=== PATIENT | male | born 1985 | race Caucasian/White ===

== ENCOUNTER 2017-07-10 10:46 | Emergency (ER) | payer OTHER ==
--- NOTE | ~2017-07-10 | ER ---
PATIENT'S NAME: SUSIE FOWLER [facility] AGE: 31 Y [address] ROOM: [place] [id number] LOCATION: ED ADMIT DATE: 07/10/2017 ER/Outpatient Report DISCHARGE DATE: 07/10/2017 FAMILY PHYSICIAN: PHYSICIAN, NO ATTENDING PHYSICIAN: Oj Carlson CHIEF COMPLAINT: Dizziness, vomiting, and headache. HISTORY OF PRESENT ILLNESS: Mr. Fowler states that for the last several nights, he has had perfuse sweating, every morning woke up, drenched in sweat, but no weight changes. Today, he woke up the same and felt a little dizzy, which got better. Then while he is at work, he became very dizzy, all of a sudden followed by severe vomiting, which triggered him to have a very severe headache. He feels a little bit better now from his dizziness and headache, but it is still awful. The type of headache that he has is his typical headache, which he describes as a migraine though he has never been formally diagnosed with same. He states that this just came out of the blue and this type of presentation has not happened before. The intensity is worse than he has ever had. He has not tried anything other than lying down for this, which did not help. The exact time of onset is unclear, but it was within the hour prior to arrival. PAST MEDICAL HISTORY: Documented on the record and reviewed by me. SOCIAL HISTORY: Documented on the record and reviewed by me. MEDICATIONS: Documented on the record and reviewed by me. ALLERGIES: DOCUMENTED ON THE RECORD AND REVIEWED BY ME. REVIEW OF SYSTEMS: All systems were reviewed and negative except as noted in the HPI. PHYSICAL EXAMINATION: VITAL SIGNS: Blood pressure is 119/69, pulse is 67, respiratory rate is 14, temp 97.9, SpO2 is 98% on room air. Pain is rated at 8/10. GENERAL: Age-appropriate male, recumbent on the exam table, in obvious pain, but no acute distress. PATIENT'S NAME: SUSIE FOWLER [facility] AGE: 31 Y [address] ROOM: [place] [address] LOCATION: ED ADMIT DATE: 07/10/2017 ER/Outpatient Report DISCHARGE DATE: 07/10/2017 FAMILY PHYSICIAN: PHYSICIAN, NO ATTENDING PHYSICIAN: Oj Carlson NEUROLOGIC: The patient is awake and alert. GCS is 14. Opens eyes to command easily. No focal deficits. No asymmetry. No ambulation difficulty. HEENT: Normocephalic, atraumatic. Eyes are PERRL. Oropharynx is clear. NECK: Supple. Trachea is midline. CHEST/HEART: Regular rate and rhythm with no murmurs. LUNGS: Clear to auscultation bilateral. No rhonchi, wheezes, or rales. ABDOMEN: Soft, nontender, and nondistended. No rebound or guarding. BACK: Normal to inspection and palpation. EXTREMITIES: Warm and well perfused with no deformities or edema. SKIN: Clean, dry, intact with no obvious rashes. LABORATORY DATA AND X-RAYS: Head CT was obtained with no evidence of acute abnormality. Labs; EKG is normal, rate of 70, with normal intervals and axis. No signs of acute ischemia or dysrhythmia. No comparison available. Urinalysis with no infection. CMS with no abnormalities. Free T4 and TSH were 1.1 and 2.130 respectively. CBC with no appreciable abnormalities. INR is less than 1. IMPRESSION: Nausea, vomiting, and headache. EMERGENCY DEPARTMENT COURSE: The patient was seen and evaluated. He was treated with Benadryl and Compazine with marked improvement in his symptoms. Based on the acute onset and unusual history, I did obtain a head CT, which was negative. He states based on his history of hypertension, he takes blood pressure medication. He denies any family history of aneurysms, no history of intravenous drug use, and no connective tissue disorder. I do not think that this patient needs to have a lumbar puncture. The head CT was definitely within 6 hours and he is a very low risk individual. I discussed return precautions with the patient and he has elected to go home and try to sleep off the remainder of his headache and will return if worse. All questions were answered and the patient was discharged in good condition. MD ARTEMIO BRYAN/ysabel /[id number] d: 07/10/17 2217 t: 07/15/17 0642, OUTPATIENT REPORT
[2017-07-10 11:22] LABS: BASOPHIL # 0.1 K/uL (0.0-0.2); BASOPHIL % 1.2 %; EOSINOPHIL # 0.2 K/uL (0.0-0.5); EOSINOPHIL % 2.8 %; HEMATOCRIT 43.8 % (37.0-53.0); HEMOGLOBIN 14.9 g/dL (12.0-17.0); IMMATURE GRANULOCYTE % 0.4 %; LYMPHOCYTE % 35.1 %; MCH 31.3 pg (27.0-34.0); MONOCYTE # 0.4 K/uL (0.0-1.0); MONOCYTE % 6.9 %; MPV 10.6 fl (9.4-12.4); NEUTROPHIL # (ANC) 3.1 K/uL (1.4-9.0); NEUTROPHIL % 53.6 %; NRBC % 0 /100WBC (0-0.00); PLATELET COUNT 262 K/uL (150-450); RBC 4.76 M/uL (4.00-6.00); RDW-CV 11.2 % (11.9-14.6); WBC 5.7 K/uL (4.0-11.0)
[2017-07-10 11:34] LABS: INR - (THERAPEUTIC) 0.97 (0.92-1.07); PROTIME 10.2 SECONDS (9.8-11.4); PTT 27 SECONDS (25-32)
[2017-07-10 11:44] LABS: ALBUMIN 3.8 gm/dL (3.5-5.0); ANION GAP 10.2 (10.0-19.0); CALCIUM 9.4 mg/dL (8.5-10.5); CREATININE 1.4 mg/dL (0.6-1.3); POTASSIUM 4.2 mMol/L (3.7-5.1); TOTAL BILIRUBIN 0.6 mg/dL (0.0-1.5); TOTAL PROTEIN 6.9 g/dL (6.0-8.4)
[2017-07-10 12:07] LABS: BILIRUBIN URINE NEGATIVE (NEGATIVE); BLOOD URINE 10 /UL (NEGATIVE); COLOR URINE STRAW (YELLOW); GLUCOSE URINE NEGATIVE (NEGATIVE); KETONE URINE NEGATIVE (NEGATIVE); LEUKOCYTES URINE NEGATIVE /UL (NEGATIVE); NITRITE URINE NEGATIVE (NEGATIVE); PROTEIN URINE NEGATIVE (NEGATIVE); SPEC GRAVITY URINE 1.005 (1.003-1.035); TURBIDITY URINE CLEAR (CLEAR); UROBILINOGEN URINE NORMAL (NORMAL)
[2017-07-10 12:21] LABS: EPITHELIAL URINE 0-2 #/HPF (NEGATIVE); WBC URINE 0-2 #/HPF (NEGATIVE)
[2017-07-10 12:22] LABS: AMORPHOUS URINE 1+ (NEGATIVE); BACTERIA URINE NEGATIVE (NEGATIVE)
== END 2017-07-10 12:11 | disposition disaster alternative care site (69) ==
LOC: GMED 10:46
PROVIDERS: Emergency Medicine
DX: R51 Headache (principal); R11.2 Nausea with vomiting, unspecified; F17.210 Nicotine dependence, cigarettes, uncomplicated; Z79.899 Other long term (current) drug therapy
CPT/HCPCS: J0780; J1200